=== PATIENT | female | born 1945 | race Caucasian/White ===

== ENCOUNTER → 2018-01-31 | Outpatient (CLI) | payer MEDICARE, OTHER ==
[2018-01-31 13:04] LABS: International Normalized Ratio 2.05; Prothrombin Time Results 21.8 Sec (9.7-11.5)
== END | disposition home or self-care (01) ==
LOC: LAB 11:55 → LAB SHORT 11:55
DX: Z79.01 Long term (current) use of anticoagulants (principal); Z51.81 Encounter for therapeutic drug level monitoring
CPT/HCPCS: 85610